=== PATIENT | male | born 1990 | race Caucasian/White ===

== ENCOUNTER 2024-11-13 13:00 | Outpatient (CLI) | payer BC, SELFPAY ==
--- NOTE | 2024-11-13 13:10 | US_ITS ---
FINAL REPORT TECHNIQUE: Sonographic images of the thyroid gland were obtained in the longitudinal and transverse planes. CLINICAL HISTORY: HYPOTHYROID COMPARISON: None FINDINGS: The right lobe measures 3.8 x 6.2 x 3.3 cm. The right lobe is heterogeneous, and contains multiple nodules. There is a 15 mm echoic upper pole nodule, a TI-RADS category 3 nodule. There is a second TI-RADS category 3 nodule measuring 9 mm in size. The left lobe measures 2.1 x 5.8 x 3 cm. The left lobe is heterogeneous. No discrete nodules are identified. The isthmus measures 8 mm. IMPRESSION: 1. TIRADS category 3 nodule in the upper pole of the right thyroid gland. Based on size, repeat thyroid ultrasound is suggested in 6 to 12 months. Reviewed, Interpreted and Dictated by Mis Sutton MD Transcribed by Patience Ferraro Authenticated and [facility]
== END 2024-11-13 23:59 | disposition home or self-care (01) ==
LOC: RAD 13:03
PROVIDERS: PCP Nurse Practitioner Family; Visit Provider Nurse Practitioner Family
DX: E04.1 Nontoxic single thyroid nodule (principal); E03.9 Hypothyroidism, unspecified
CPT/HCPCS: 76536